=== PATIENT | female | born 1995 | race Caucasian/White ===

== ENCOUNTER 2021-08-03 14:37 | Outpatient (CLI) | payer BC, SELFPAY ==
--- NOTE | 2021-08-03 | ECHO_ITS ---
Patient Info Name: Pratibha Leon Age: 25 years : 1995 Gender: Female Ht: 65 in Wt: 135 lbs BSA: 1.68 m2 HR: 74 bpm BP: 110 / 68 mmHg Heart Rhythm: Sinus Rhythm Technical Quality: Good Exam Date: 08/03/2021 3:12 PM Exam Location: [facility] Patient Status: Outpatient Admit Date: 08/03/2021 Staff Ordering Physician: Miley Corea MD Radio Journalist: Shmaa Hendrix RDCS Attending Provider: Miley Corea MD Exam Type: CA echo doppler color flow Study Info Indications - GILMA DANLOS SYNDROME Complete two-dimensional, color flow and Doppler transthoracic echocardiogram is performed. Summary 1. Complete two-dimensional, color flow and Doppler transthoracic echocardiogram is performed. 2. Left ventricular chamber dimension is normal. 3. Left ventricular systolic function is normal, estimated at 60-65%. 4. There is no increased left ventricular wall thickness. 5. The left ventricular diastolic function is normal. 6. There is trace mitral valve regurgitation. 7. Straightening of the mitral valve leaflets without clear prolapse. 8. The aortic root size at the sinus of Valsalva is normal. 9. The prox ascending aorta size is normal. 10. The aorta arch size is normal measuring 2.0 cm. Left Ventricle Left ventricular chamber dimension is normal. Left ventricular systolic function is normal, estimated at 60-65%. There is no increased left ventricular wall thickness. The left ventricular diastolic function is normal. Right Ventricle Right ventricular chamber dimension is normal. Right ventricular systolic function is normal. Left Atria Left atrial chamber dimension is normal. Right Atria Right atrial chamber dimension is normal. Aortic Valve The aortic valve is probable trileaflet. There is no aortic valve stenosis. There is no aortic valve regurgitation. Pulmonic Valve The pulmonic valve is not well visualized. There is trace pulmonic regurgitation. Mitral Valve The mitral valve has normal leaflets. There is trace mitral valve regurgitation. Straightening of the mitral valve leaflets without clear prolapse. Tricuspid Valve The tricuspid valve leaflets are normal. There is trace tricuspid valve regurgitation. No pulmonary hypertension, estimated pulmonary arterial systolic pressure is 24 mmHg. Pericardium/Pleural The pericardium appears normal. There is no pericardial effusion. Inferior Vena Cava Normal inferior vena cava with >50% collapse upon inspiration consistent with normal right atrial pressure, 5 mmHg. Aorta The aortic root size at the sinus of Valsalva is normal. The prox ascending aorta size is normal. The aorta arch size is normal measuring 2.0 cm. Left Ventricular Outflow Tract Name Value Normal LVOT 2D LVOT Diameter 2.0 cm LVOT Doppler LVOT Peak Gradient 4 mmHg LVOT Mean Gradient 2 mmHg LVOT VTI 19 cm LVOT VTI/AV VTI Ratio 0.8 LVOT Stroke Volume 60 ml LVOT CO
== END 2021-08-03 14:38 | disposition home or self-care (01) ==
PROVIDERS: PCP Physician Assistant
DX: Q79.60 Ehlers-Danlos syndrome, unspecified (principal)
CPT/HCPCS: 93306

== ENCOUNTER 2021-12-23 12:20 | Outpatient (CLI) | payer BC, SELFPAY | END 2021-12-23 12:21 | disposition home or self-care (01) | LOC: ANHLAB 12:22 | PROVIDERS: PCP Physician Assistant; Visit Provider Internal Medicine Gastroenterology | DX: R19.7 Diarrhea, unspecified (principal) | CPT/HCPCS: 87045; 87177; 87209; 87427; 89055 ==

== ENCOUNTER 2022-02-07 00:32 | Day surgery (SDC) | payer BC, SELFPAY ==
[2022-01-25 14:45] VITALS: BMI 20.4
[2022-02-07 08:17] VITALS: BP 121/51; PULSE 101; RESP 18; TEMP 36.3; O2SAT 97; BMI 19.6
[2022-02-07] MEDS: LACTATED RINGERS 1,000 ML 150 ML IV CONT (08:40)
--- NOTE | 2022-02-07 08:51 | WPDANESEPPF ---
Anes - Initial Pre Proc Eval Procedure: Operation Date: 02/07/22 09:30 Proposed Procedures p Esophagogastroduodenoscopy & Colonoscopy - Pastor Dumnot MD Date/Time: 02/07/22 08:51 Surgeon: Pastor Dumont MD Pre Op Diagnosis: diarrhea, nausea, GERD Patient Data Age: 26 Gender: F Height: 1.63 m Weight: 51.9 kg Last Vital Signs Temp 97.4 F L 02/07/22 08:17 Pulse 101 H 02/07/22 08:17 Resp 18 02/07/22 08:17 BP 121/51 L 02/07/22 08:17 Pulse Ox 97 02/07/22 08:17 Allergies Allergy/AdvReac Type Severity Reaction Status Date / Time peanut Allergy Anaphylaxis Verified 02/07/22 08:26 Home Medications Medication Instructions Recorded Confirmed Type buspirone 10 mg tablet 10 mg PO BID 12/22/21 02/07/22 History duloxetine 60 mg capsule,delayed 60 mg PO DAILY 12/22/21 02/07/22 History release hydroxychloroquine 200 mg tablet 400 mg PO DAILY tablet 12/22/21 02/07/22 History pantoprazole 40 mg tablet,delayed 40 mg PO QAM 12/22/21 02/07/22 History release sulfasalazine 500 mg tablet 0.5 g PO BID tablet 12/22/21 02/07/22 History topiramate 25 mg sprinkle capsule 50 mg PO DAILY cap 12/22/21 02/07/22 History Patient hx anesthesia problems: none Family hx anesthesia problems: none Results Review: All pre-operative results and documents have been reviewed as part of the pre-operative evaluation. [facility] Past Medical History Medical History (Updated 12/22/21 @ 13:43 by Pastor Dumont MD) Anxiety Blood in stool Diarrhea Janette-Danlos syndrome GERD (gastroesophageal reflux disease) Lower abdominal pain Lupus Nausea Weight loss Social History Social History (Updated 12/22/21 @ 13:15 by Teodora Haddad CMA) Smoking status: Never smoker Alcohol intake: never Substance use: current Substance use type: marijuana Other substance usage details: Daily Living arrangements: with family Spiritual care concerns: No Anes - Eval Final PreProcedure Day of Procedure 02/07/22 08:51 Patient weight: normal Heart: regular rate and rhythm Lungs: clear to auscultation Airway: Mallampati scale class II Neurological: alert and oriented Last oral intake: >/= 8 hours ASA classification: II Emergent: no Anesthetic plan: proceed Anesthesia type and monitoring: general GIVS and standard monitoring Results Review: All pre-operative results and documents have been reviewed as part of the pre-operative evaluation. Informed Consent: The patient's anesthetic plan and its attendant risks and benefits were discussed with the patient/family/POA. Questions were solicited and answers provided to the satisfaction of the patient/family/POA.
--- NOTE | 2022-02-07 09:12 | PM.HPGS ---
History of Present Illness History of Present Illness Consent: Risks, benefits, and alternatives have been discussed and questions answered. Patient agrees to proceed with procedure. Chief complaint: diarrhea, nausea, GERD Narrative: Pratibha Leon is a 26 year old female here for egd and colonoscopy (never had scopes). h/o SLE on 5 asa and plaquenil, also Ehler Danlos syndrome. She has been having daily loose stools up to 2 times daily, she went to [facility] last year, had CT Scan a/p negative, also normal cbc and cmp (reviewed) because intermittent rectal bleeding with diarrhea. Still ongoing problem, she has cramping and discomfort. Chronic nausea and weight loss. Recent stool sample negative for infection (she thinks that has seen taperworm in stool) Review of Systems Constitutional: Constitutional: Denies headache(s) and Denies weakness Eyes: Eyes: Denies blurry vision ENT: Reports Normal hearing present, Denies headache(s) and Denies neck pain Cardiovascular: Cardiovascular: Denies chest pain and Denies dyspnea Respiratory: Respiratory: Denies dyspnea Gastrointestinal: Gastrointestinal: Reports no additional gastrointestinal complaints Genitourinary: Genitourinary: Denies dysuria Musculoskeletal: Musculoskeletal: Denies neck pain Integumentary/Breasts: Skin/Breast: Denies dry skin Neurologic: Reports Normal hearing present, Denies headache(s) and Denies weakness Psychiatric: Psychiatric: Denies anxiety Endocrine: Endocrine: Denies change in body appearance Hematologic/Lymphatic: Hematologic/Lymphatic: Denies easy bleeding Allergic/Immunologic: Allergic/Immunologic: Denies urticaria PMFSH Past Medical History Medical History (Updated 12/22/21 @ 13:43 by Pastor Dumont MD) Anxiety Blood in stool Diarrhea Janette-Danlos syndrome GERD (gastroesophageal reflux disease) Lower abdominal pain Lupus Nausea Weight loss Social History Social History (Updated 12/22/21 @ 13:15 by Teodora Haddad CMA) Smoking status: Never smoker Alcohol intake: never Substance use: current Substance use type: marijuana Other substance usage details: Daily Living arrangements: with family Spiritual care concerns: No Meds Home Medications and Allergies Home Medications Medication Instructions Recorded Confirmed Type buspirone 10 mg tablet 10 mg PO BID 12/22/21 02/07/22 History duloxetine 60 mg capsule,delayed 60 mg PO DAILY 12/22/21 02/07/22 History release hydroxychloroquine 200 mg tablet 400 mg PO DAILY tablet 12/22/21 02/07/22 History pantoprazole 40 mg tablet,delayed 40 mg PO QAM 12/22/21 02/07/22 History release sulfasalazine 500 mg tablet 0.5 g PO BID tablet 12/22/21 02/07/22 History topiramate 25 mg sprinkle capsule 50 mg PO DAILY cap 12/22/21 02/07/22 History Allergies Allergy/AdvReac Type Severity Reaction Status Date / Time peanut Allergy Anaphylaxis Verified 02/07/22 08:26 Vital Signs Vital Signs - 24 hr 02/07/22 08:17 Temperature 97.4 F L Pulse Rate 101 H Respiratory Rate 18 Blood Pressure 121/51 L Pulse Oximetry 97 Exam Const: General: comfortable and no acute distress HENMT: General nose exam: Normal nares present Eyes: General: appearance normal, both eyes and all related structures Neck: Neck: no JVD Resp: Auscultation: clear to auscultation bilaterally Cardio: Rate: regular rate Rhythm: regular rhythm GI: Inspection: non-distended GI Palp: Yes Soft to palpation Skin: General skin exam: normal color Neuro: General: gait normal Speech: normal speech Extrem: General: normal to inspection Psych: Mental Status: mental status grossly normal Assessment and Plan Assessment and plan (1) GERD (gastroesophageal reflux disease): Code(s): K21.9 - Gastro-esophageal reflux disease without esophagitis Status: Acute Assessment and Plan: egd with bx, already on ppi (2) Nausea: Code(s): R11.0 - N
--- NOTE | 2022-02-07 09:34 | SUR.OPER ---
EGD end 927 COLONOSCOPY start 933
[2022-02-07 09:46] VITALS: BP 77/43; PULSE 79; RESP 36; O2SAT 98
[2022-02-07 09:56] VITALS: BP 88/48; PULSE 79; RESP 17; O2SAT 99
[2022-02-07 10:06] VITALS: BP 104/66; PULSE 87; RESP 23; O2SAT 100
== END 2022-02-07 10:22 | disposition home or self-care (01) ==
PROVIDERS: PCP Physician Assistant; Visit Provider Internal Medicine Gastroenterology
PROC: 0DJ08ZZ Inspection of Upper Intestinal Tract, Via Natural or Artificial Opening Endoscopic (ICD-10-PCS; CPT 43235; principal; 2022-02-07 09:30)
DX: R19.7 Diarrhea, unspecified (principal); K62.1 Rectal polyp; R10.9 Unspecified abdominal pain; K64.8 Other hemorrhoids; K21.9 Gastro-esophageal reflux disease without esophagitis; K44.9 Diaphragmatic hernia without obstruction or gangrene; R11.0 Nausea; F12.90 Cannabis use, unspecified, uncomplicated; Q79.60 Ehlers-Danlos syndrome, unspecified; R63.4 Abnormal weight loss; Z68.1 Body mass index [BMI] 19.9 or less, adult
CPT/HCPCS: 45380; 43239; 88305; J2704; J7120

== ENCOUNTER 2022-07-16 08:36 | Emergency (ER) | payer BC, SELFPAY ==
--- NOTE | 2022-07-16 08:37 | ED.URI ---
HPI - URI/Sore Throat General Stated Complaint: fever sore throat headache chills Time Seen by Provider: 07/16/22 08:37 Source: patient Mode of arrival: ambulatory Limitations: no limitations History of Present Illness HPI Narrative: Ms. Leon is a 26-year-old female patient presenting to the clinic today with complaints of fever, sore throat, headache, and chills times x1 week. She reports that she just started the higher dose of methotrexate and is concerned that this may be the cause. She has not been able to take her temperature as she does not have a thermometer but she has hot and has had sweats. She denies any chest pain or shortness of breath. She denies any nasal congestion or postnasal drip. She has not taken anything for pain. She states that she has been using ice packs for her headache. MD elicited complaint: fever, sore throat and other (Headache, chills) Related Data Home Medications Medication Instructions Recorded Confirmed buspirone 10 mg tablet 10 mg PO BID 12/22/21 02/07/22 duloxetine 60 mg capsule,delayed 60 mg PO DAILY 12/22/21 02/07/22 release folic acid 1 mg tablet 2 mg PO DAILY 07/16/22 07/16/22 hydroxychloroquine 200 mg tablet 200 mg PO DAILY 07/16/22 07/16/22 insulin syringe-needle U-100 1 mL 07/16/22 07/16/22 30 gauge x 5/16 (TRUEplus Insulin) methotrexate sodium (PF) 25 mg/mL 17.5 mg subcut WEEKLY 07/16/22 07/16/22 injection solution Allergies Allergy/AdvReac Type Severity Reaction Status Date / Time peanut Allergy Severe Anaphylaxis Verified 07/16/22 08:51 Review of Systems Review of Systems: Pertinent positives per HPI. Patient denies any rash, visual changes, dizziness, cough, shortness of breath, chest pain, palpitations, nausea, vomiting, diarrhea, constipation, abdominal pain, or any urinary issues. [facility] Past Medical History Medical History Anxiety Blood in stool Diarrhea Janette-Danlos syndrome GERD (gastroesophageal reflux disease) Lower abdominal pain Lupus Nausea Weight loss Social History Social History Smoking status: Never smoker Alcohol intake: never Substance use: current Substance use type: marijuana Other substance usage details: Daily Spiritual care concerns: No Comments At the time of my signature, I reviewed and agree with the nursing past medical, surgical, social, and family history. There is no relevant family history pertinent to the patient complaint. Exam Narrative: General: Well-developed, thin/frail appearing, in no apparent distress Head: Normocephalic, atraumatic Eyes: Pupils equally round and reactive to light bilaterally, EOM intact, sclera and conjunctive clear, no discharge, lids normal Ears: TMs intact, dull, and clear, ear canals clear, no drainage, grossly hearing normal. Nose: Nares patent, clear discharge, no inflammation, no sinus tenderness. Mouth: Oral pharynx without lesions or masses, good dentition, MMM. Neck: Supple, trachea midline, no enlargement of anterior or posterior cervical nodes, no thyroid masses or goiter palpable. Cardio: Regular rate and rhythm, s1 and s2 normal, no murmur appreciated. Resp: Clear to auscultation bilaterally, no rhonchi, rales, wheezing or rubs Course Course Emergency Course: Portions of this record may have been created with voice recognition software. Level of Care: Express Care Visit Vital Signs Vital signs: Vital signs reviewed MDM - URI/Sore Throat MDM Narrative Medical decision making narrative: At the time of visit patient is resting comfortably on the exam table. Strep screen was obtained and was negative in the clinic. Influenza testing and COVID testing was not done as her symptoms have been ongoing x1 week. Recommend follow-up with her PCP for labs if symptoms persist in 3 to 5 days to rule out any bacterial cause. Different
[2022-07-16 08:44] VITALS: BP 108/76; PULSE 83; RESP 16; TEMP 37; O2SAT 100
== END 2022-07-16 09:12 | disposition home or self-care (01) ==
PROVIDERS: Emergency Provider Nurse Practitioner Family; PCP Physician Assistant
DX: B34.9 Viral infection, unspecified (principal); K21.9 Gastro-esophageal reflux disease without esophagitis; M32.9 Systemic lupus erythematosus, unspecified
CPT/HCPCS: 87081; 87880; 99213; G0463

== ENCOUNTER 2024-02-17 17:49 | Emergency (ER) | payer BC, SELFPAY ==
[2024-02-17 17:54] VITALS: BP 100/66; PULSE 81; RESP 14; TEMP 37.1; O2SAT 99
--- NOTE | 2024-02-17 18:00 | ED.FEMALEGU ---
HPI - Female Genitourinary General Chief complaint: Urogenital-Female Stated complaint: Poss UTI History of Present Illness HPI Narrative: Patient presents with concerns for urinary tract infection. Patient reports burning with urination frequency and urgency. No flank pain no gross hematuria no suprapubic pain no abdominal pain no pelvic pain no concern for STDs Related Data Home Medications Medication Instructions Recorded Confirmed duloxetine 60 mg capsule,delayed 60 mg PO DAILY 12/22/21 02/17/24 release folic acid 1 mg tablet 2 mg PO DAILY 07/16/22 02/17/24 hydroxychloroquine 200 mg tablet 200 mg PO DAILY 07/16/22 02/17/24 insulin syringe-needle U-100 1 mL 07/16/22 07/16/22 30 gauge x /16 (TRUEplus Insulin) cetirizine 10 mg tablet (Zyrtec) 10 mg PO DAILY 02/17/24 02/17/24 cholecalciferol (vitamin D3) 50 50 mcg PO DAILY 02/17/24 02/17/24 mcg (2,000 unit) capsule (Vitamin D3) cyanocobalamin (vitamin B-12) 1,000 mcg PO DAILY 02/17/24 02/17/24 1,000 mcg tablet (Vitamin B-12) methotrexate sodium 2.5 mg tablet 20 mg PO WEEKLY 02/17/24 02/17/24 ondansetron HCl 8 mg tablet 8 mg PO Q8H 02/17/24 02/17/24 propranolol 20 mg tablet 20 mg PO DAILY 02/17/24 02/17/24 secukinumab 150 mg/mL subcutaneous mg subcut 02/17/24 pen injector (Cosentyx Pen 300 mg/2 Pens () Allergies Allergy/AdvReac Type Severity Reaction Status Date / Time peanut Allergy Severe Anaphylaxis Verified 02/17/24 18:01 Review of Systems Review of Systems: CONSTITUTIONAL: Denies fever, chills, or sweats. EYES: Denies visual changes, redness, or discharge. ENT: Denies rhinorrhea, congestion, sore throat, or otalgia. CARDIOVASCULAR: Denies chest pain, palpitations, or edema. RESPIRATORY: Denies cough or dyspnea. GASTROINTESTINAL: Denies abdominal pain, nausea, vomiting, or diarrhea. GENITOURINARY: Denies dysuria or hematuria. SKIN: Denies rash or itching. MUSCULOSKELETAL: Denies back pain, joint pain, or myalgia. NEUROLOGIC: Denies headache, numbness, or weakness. PSYCHIATRIC: Denies anxiety or depression. [facility] Past Medical History Medical History Anxiety Blood in stool Diarrhea Janette-Danlos syndrome GERD (gastroesophageal reflux disease) Lower abdominal pain Lupus Nausea Weight loss Social History Social History Smoking status: Never smoker Alcohol intake: never Substance use: current Substance use type: marijuana Other substance usage details: Daily Living arrangements: with family Spiritual care concerns: No Comments At time of signature, agree with nursing past medical, surgical, social and family history. There is no relevant family history pertinent to the presenting complaint Exam Narrative: GENERAL: Well-appearing, well-nourished, and in no acute distress. HEAD: Normocephalic, atraumatic. EYES: PERRLA and EOMI. ENT: Nares clear, no rhinorrhea or epistaxis. Mucous membranes moist. NECK: Supple. CHEST: Clear to auscultation. No respiratory distress. HEART: Regular rate and rhythm. No murmur heard. Normal peripheral pulses. ABDOMEN: Soft, nontender, nondistended, normal active bowel sounds. EXTREMITIES: Normal range of motion. No edema. SKIN: Warm, dry, no rash. NEURO: No focal deficits. Alert and oriented x3. [place] Com[place] Scale Eye Opening: Spontaneous 4 [place] Com[place] Scale Motor: Obeys Commands 6 [place] Com[place] Scale Verbal: Oriented 5 [place] Com[place] Scale Total 15 Course Course Level of Care: Express Care Visit Vital Signs Vital signs: Vital Signs Temperature 37.1 C 02/17/24 17:54 Pulse Rate 81 02/17/24 17:54 Respiratory Rate 14 02/17/24 17:54 Blood Pressure 100/66 02/17/24 17:54 Pulse Oximetry 99 02/17/24 17:54 Oxygen Delivery Room Air 02/17/24 17:54 Temperature 37.1 C 02/17/24 18:07 Pulse Rate 81 02/17/24 18:07 Respiratory Ra
[2024-02-17 18:07] VITALS: BP 100/66; PULSE 81; RESP 14; TEMP 37.1; O2SAT 99
== END 2024-02-17 18:20 | disposition home or self-care (01) ==
PROVIDERS: Emergency Provider Nurse Practitioner Family; PCP Family Medicine
DX: R30.0 Dysuria (principal); R39.15 Urgency of urination; Q79.60 Ehlers-Danlos syndrome, unspecified; K21.9 Gastro-esophageal reflux disease without esophagitis; F12.90 Cannabis use, unspecified, uncomplicated
CPT/HCPCS: 81003; 81025; 87086; 99213; G0463